=== PATIENT | male | born 1980 | race Caucasian/White ===

== ENCOUNTER 2024-01-06 09:14 | Outpatient (CLI) | payer BC, SELFPAY ==
--- NOTE | 2024-01-06 09:16 | CA_ITS ---
APPROVED REPORT EXAM: Comprehensive 2D, Doppler, and color-flow Echocardiogram Ball Shagger: Princess Jean-Baptiste RT(R) Ht: 6 ft 0 in Wt: 190lbs BSA: 2.08 BP: 160/78 mmHg Indications: cp, sob, htn, smoker 2D Dimensions Aortic Root 2.06 cm M: 3.1 - 3.7 LVEF (La's) 58.90 % M: 52 - 72 Left Atrium 2.91 cm M: 3.0 - 4.0 LV Volume 117.20 mL M: 62 - 150 LV Volume Index 56.3 mL/m2 M: 34 - 74 LA Volume 45.30 mL LA Volume Index 21.78 mL/m2 (M/F) 16-34 EF AP4 57.30 % EF AP2 55.9 % EF BP 58.9 % GL Strain -16.2 % M-Mode Dimensions RVDd 3.07 cm (0.9-2.6) LVDd 5.14 cm (3.5-5.7) Ao Diam 2.91 cm (2.0-3.7) LVDs 3.61 cm (3.5-5.7) IVSd 1.21 cm (0.6-1.1) PWd 1.00 cm (0.6-1.1) EF (Teich) 56.50% FS 29.80% EDV (Teich) 126.10 mL ESV (Teich) 54.80 mL LV Diastology E Decel Time 228 (160-240 msec) E/A Ratio 1.2 MED E' 9.2 (>= 7 cm/sec) E'/MED E' Ratio 11.77 (<= 14) LAT E' 13.0 (>= 10 cm/sec) E/LAT E' Ratio 8.33 (<= 14) Mitral Valve MV E Max Narayan. 108.0 (40-130 cm/s) MV A Velocity 87.0 (40-130 cm/s) E/A Ratio 1.25 MV Decel. Time 228 (160-240 ms) Left Ventricle The left ventricle is normal size. The left ventricular systolic function is normal. The left ventricular ejection fraction is within the normal range. There is increased overall thickness. There is normal LV segmental wall motion. The left ventricular diastolic function is normal. LVEF is 55%. Right Ventricle Right ventricle is mildly dilated. The right ventricular systolic function is normal. Atria The left atrium size is normal. The right atrium size is normal. There is no Doppler evidence of interatrial shunt. Aortic Valve The aortic valve opens well. There is no aortic valvular stenosis. No aortic regurgitation is present. Mitral Valve The mitral valve is normal in structure. No evidence of mitral valve stenosis. Trace mitral regurgitation. Tricuspid Valve The tricuspid valve leaflets are thin and pliable. Trace tricuspid regurgitation. There is insufficient TR jet to estimate RVSP. Pulmonic Valve The pulmonary valve is normal in structure. Trace pulmonic regurgitation. Great Vessels The aortic root is normal in size. The ascending aorta is not well-visualized. IVC is normal in size and collapses >50% with inspiration. Pericardium There is no pericardial effusion. Other Information Study Quality: Fair Conclusion Normal biventricular systolic function. Mild RV dilation. No significant valvular stenosis or regurgitation. Electronically signed by : Vesta Sánchez MD 01/07/2024 14:06:45
--- NOTE | 2024-01-06 09:22 | US_ITS ---
PROCEDURE INFORMATION: Exam: US Left Breast, Complete US Right Breast, Complete Exam date and time: 01/06/2024 9:28 AM Age: 43 years old Clinical indication: Left breast palpable lump. Right-sided breast abscess and right nipple discharge. TECHNIQUE: Imaging protocol: Complete ultrasound of all four quadrants of the left breast and the retroareolar regions, including ultrasound of the axilla when performed. Complete ultrasound of all four quadrants of the right breast and the retroareolar regions, including ultrasound of the axilla when performed. COMPARISON: No relevant prior studies available. FINDINGS: ULTRASOUND: Breast ultrasound findings: In the right breast retroareolar region in the area of concern, there is an irregular hypoechoic lesion measuring 3.0 x 1.6 x 1.4 cm, with hypervascularity. No There is overlying skin thickening If there are clinical signs and symptoms of infection, possible incisions/drainage and trial of antibiotics is recommended. A repeat ultrasound in 3 weeks to ensure improvement/resolution is recommended, otherwise ultrasound-guided biopsy should be performed. In the left breast retroareolar aspect at the palpable area of concern there is a 1.7 x 1.2 x 1.6 cm hypoechoic slightly irregular rounded mass, with suggestion of non parallel orientation. There is peripheral vascularity. IMPRESSION: 1. Suspected abscess in the right retroareolar breast. Evaluation by a surgeon for possible incision and drainage as well as trial of antibiotics recommended. Right breast ultrasound in 3 weeks is recommended to ensure improvement/resolution, otherwise ultrasound-guided biopsy should be performed. 2. In the left breast in the palpable area of concern, there is an indeterminate hypoechoic mass. Ultrasound-guided biopsy is recommended. 3. If the patient has not had a bilateral diagnostic mammogram, a mammogram is recommended at this time. ASSESSMENT: BI-RADS Category 4: Suspicious.
--- NOTE | 2024-01-06 10:36 | NM_ITS ---
APPROVED REPORT Exam: Nuclear Stress Test Indication: Chest pain, SOB, HTN, High cholesterol, Tobacco use, Family history Patient Location: Outpatient Stress Tech: Marcie Juan NM Tech:Tamiko Marie, ARRT, RT (R)(N) Ht: 6 ft 0 in Wt: 190 lbs HR: 59 bpm BP: 129/89 mmHg BSA: 2.08 m2 TID: 1.04 History: Chest pain, SOB, HTN, High cholesterol, Tobacco use, Family history Procedure: Patient received 0.4 mg of intravenous Lexiscan, resting heart rate 59 bpm, resting blood pressure 129/89 mmHg, with Lexiscan maximum heart rate achieved was 84 bpm which is % of the maximum predicted heart rate and blood pressure was 157/81 mmHg. With Lexiscan, patient denied any complaint of chest pain. Cardiac Stress and Resting SPECT Images: Cardiac Stress and Resting SPECT images were obtained using technetium 99m Myoview 30.7 mCi stress and 10.49 mCi at rest. Technically difficult study due to significant soft tissue diaphragmatic overlap with the cardiac borders. This may affect the diagnostic interpretation of the study findings. Resting and stress imaging in supine and prone positions demonstrate a large sized, moderate, fixed perfusion defect in the inferior LV wall and extending distally towards the inferoapical region. Gated imaging demonstrates normal global and regional LV systolic function. LVEF is located at 57%. Conclusion: Technically difficult study. Large sized, moderate, fixed perfusion defect in the inferior LV wall and extending distally towards the inferoapical region. No evidence of reversible ischemia. Gated imaging demonstrates normal global and regional LV systolic function. LVEF is located at 57%. Electronically signed by : Vesta Sánchez MD 01/07/2024 11:51:41
[2024-01-06] MEDS: REGADENOSON 0.4MG/5ML SYRINGE 0.4 MG IV (13:01)
[2024-01-06] MEDS: SODIUM CHLORIDE 0.9% 10ML SYR (RAD ONLY) 10 ML IV ×2 (13:01)
[2024-01-06] MEDS: ISOTOPE MYOVIEW (PER STUDY) 1 DOSE IV (13:01)
--- NOTE | 2024-01-06 14:02 | CA_ITS ---
APPROVED REPORT Exam: Pharmacologic Technologist: Marcie Juan Ht: 6 ft 0 in Wt: 194 lbs BSA: 2.10 m2 HR: 59 bpm BP: 129/89 mmHg Indications: Shortness of Breath, Chest pain Medical History Medications: MeLOXICAM,,,,, PaROXETINE,,,,, ClINDAMYCIN,,,,, Stress Test Details Test: LEXISCAN HR Resting HR: 59 bpm Max Heart Rate (APMHR): 176 bpm Max HR Achieved: 84 bpm Target HR (85% APMHR): 150 bpm % of APMHR: 48 Recovery HR: 62 bpm BP Resting BP: 129.0/89.0 mmHg Max BP: 157.0/81.0 mmHg Recovery BP: 457.0/81.0 mmHg ECG Resting ECG: Sinus bradycardia Stress ECG: No significant ST changes Arrhythmia: None Clinical Exercise duration: 04:00 min Highest Stage Achieved: Exercise capacity: 1.0 METs Stress ECG Conclusion Symptoms: None Arrhythmias/Ectopy: None ST-T Changes: No significant ST changes Conclusion: Unremarkable ECG portion of Lexiscan stress test. Myoview images reported separately. Test Summary REST 12:56 . . 59 . 129/ 89 . . Stage 1 . . . . . . . Myoview Injected Stage 1 01:00 . . 73 . . . . Stage 2 01:00 . . 67 . . . . Stage 3 01:00 . . 63 . 142/100 . . Stage 4 01:00 . . 72 . 144/ 84 . Stop exercise at 04:00 RECOVERY 01:00 . . 68 . 150/ 90 . . RECOVERY 02:00 . . 70 . 150/ 90 . . RECOVERY 03:00 . . 60 . 152/ 89 . . RECOVERY 03:56 . . 58 . 157/ 81 . . Electronically signed by : Vesta Sánchez MD 01/07/2024 11:49:10
== END 2024-01-06 23:59 | disposition home or self-care (01) ==
LOC: RAD 09:16
PROVIDERS: PCP Family Medicine; Visit Provider Family Medicine
DX: R07.9 Chest pain, unspecified (principal); R06.02 Shortness of breath; N61.1 Abscess of the breast and nipple; N64.52 Nipple discharge; R92.8 Other abnormal and inconclusive findings on diagnostic imaging of breast
CPT/HCPCS: 76641; 78452; 93017; 93018; 93306; A9502; J2785

== ENCOUNTER 2024-04-27 07:30 | Outpatient (CLI) | payer BC, SELFPAY ==
--- NOTE | 2024-04-27 07:31 | US_ITS ---
FINAL REPORT CLINICAL HISTORY: Breast Nodule -- LT BREAST -- DR.ALEX CARVALHO FINDINGS: ULTRASOUND-GUIDED LEFT BREAST CORE BIOPSY TECHNIQUE: Limited images were obtained to localize region of interest. Lesion was localized at approximately 3:00. The left breast was prepped in a routine sterile fashion and locally anesthetized with 1% lidocaine. Standard written informed consent was obtained. The biopsy needle was positioned within the outer periphery of the lesion. A total of 3 passes were made with a 16 gauge core biopsy needle. Complex fluid was also noted which appeared somewhat purulent. Approximately 2 mL's of purulent fluid was aspirated and submitted for cultures. Due to the possibility of abscess a biopsy marker clip was not placed. Procedure was well tolerated . CONCLUSION: 1. Technically successful ultrasound guided core biopsy of left breast lesion as above. 2. Purulent material noted and submitted for cultures and sensitivity. Lesion may represent possible abscess. Authenticated and ERN
== END 2024-04-27 23:59 | disposition home or self-care (01) ==
LOC: RAD 07:31
PROVIDERS: PCP Nurse Practitioner; Visit Provider Nurse Practitioner
DX: N63.20 Unspecified lump in the left breast, unspecified quadrant (principal)
CPT/HCPCS: 19083; 87070; 87077; 87186; 87205

== ENCOUNTER 2024-05-03 10:04 | Outpatient (POV) | payer BC, SELFPAY ==
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
[2024-05-03 10:36] VITALS: BP 107/72; PULSE 60; RESP 18; O2SAT 98; BMI 27.1
== END 2024-05-03 23:59 | disposition home or self-care (01) ==
LOC: SC.PAIN 10:09
PROVIDERS: Visit Provider Nurse Practitioner Family
DX: M54.2 Cervicalgia (principal); M54.50 Low back pain, unspecified; M25.511 Pain in right shoulder; Z87.828 Personal history of other (healed) physical injury and trauma; M54.16 Radiculopathy, lumbar region; Z73.89 Other problems related to life management difficulty; F17.210 Nicotine dependence, cigarettes, uncomplicated
CPT/HCPCS: 99202; G0463

== ENCOUNTER 2024-05-12 13:29 | Outpatient (CLI) | payer BC, SELFPAY | END 2024-05-12 23:59 | disposition home or self-care (01) | LOC: RAD 13:30 | PROVIDERS: PCP Nurse Practitioner; Visit Provider Nurse Practitioner | DX: Z12.31 Encounter for screening mammogram for malignant neoplasm of breast (principal) ==

== ENCOUNTER 2024-06-11 10:07 | Outpatient (POV) | payer OTHER, SELFPAY ==
[2024-06-11 10:40] VITALS: BP 140/86; PULSE 72; RESP 14; O2SAT 99; BMI 27.1
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
== END 2024-06-11 23:59 | disposition home or self-care (01) ==
PROVIDERS: PCP Nurse Practitioner; Visit Provider Nurse Practitioner Family
DX: M54.16 Radiculopathy, lumbar region (principal); M54.50 Low back pain, unspecified; M54.2 Cervicalgia; F17.210 Nicotine dependence, cigarettes, uncomplicated
CPT/HCPCS: 99212; G0463

== ENCOUNTER 2024-07-08 11:12 | Outpatient (CLI) | payer OTHER, SELFPAY ==
[2024-07-08 19:06] LABS: Basophils # 0.1 K/mm3 (0-0.2); Basophils % 0.7 % (0.1-2.0); Eosinophils # 0.2 K/mm3 (0.0-0.4); Eosinophils % 2.2 % (0.1-12.0); Hematocrit 51.3 % (42.0-52.0); Hemoglobin 17.9 g/dL (14.1-18.0); Lymphocytes # 2.7 K/mm3 (0.7-4.5); Lymphocytes % 28.5 % (10-50); Mean Corpuscular HGB Conc 34.9 g/dL (31.8-35.4); Mean Corpuscular Hemoglobin 35.8 pg (27.0-31.2); Mean Corpuscular Volume 102.6 fl (80-94); Mean Platelet Volume 9.3 fl (7.4-10.4); Monocytes # 0.7 K/mm3 (0.1-1.0); Monocytes % 7.8 % (1.7-9.3); Neutrophils # 5.7 K/mm3 (1.8-7.8); Neutrophils % 60.2 % (37.0-80.0); Platelet Count 262 K/mm3 (142-424); Red Cell Distribution Width 12.7 % (11.5-17.5); White Blood Count 9.5 K/mm3 (4.8-10.8)
[2024-07-08 19:32] LABS: Alanine Aminotransferase 37 U/L (12-78); Albumin/Globulin Ratio 1.9 (1.1-1.8); Alkaline Phosphatase 63 U/L (38-126); Anion Gap 13.7 mEq/L (5-15); Aspartate Amino Transferase 40 U/L (17-59); Bilirubin,Total 0.6 mg/dl (0.2-1.3); Blood Urea Nitrogen 13 mg/dl (9-20); Calcium 9.4 mg/dl (8.4-10.2); Carbon Dioxide 20 mmol/L (22.0-30.0); Chloride 109 mmol/L (98-107); Chol/HDL Ratio 4.7 (1-3.5); Cholesterol 156 mg/dl (140-200); Estimated Glomerular Filt Rate 180 ml/min (>60); GFR (African American) 218 ML/MIN (>60); Globulin 2.7 g/dL (1.3-3.2); Glucose 97 mg/dl (74-100); HDL Cholesterol 33 mg/dl (40-60); Potassium 4.7 mmoL/L (3.5-5.1); Sodium 138 mmol/L (136-145); Total Protein,Serum 7.7 g/dl (6.3-8.2); Triglycerides 257 mg/dl (30-150); VLDL Cholesterol 51 mg/dL (0-40)
[2024-07-08 19:43] LABS: Direct LDL Cholesterol 70.44 mg/dL (100-129)
[2024-07-08 19:48] LABS: 25-OH Vitamin D, Total 19.5 ng/mL (30-100)
[2024-07-08 19:49] LABS: T4 (Thyroxine) 8.5 ug/dl (5.53-11.0)
[2024-07-08 20:03] LABS: Thyroid Stimulating Hormone 3.96 uIU/mL (0.465-4.68)
== END 2024-07-08 23:59 | disposition home or self-care (01) ==
LOC: LAB.DROPOF 07-09 12:34
PROVIDERS: PCP Nurse Practitioner Family; Visit Provider Nurse Practitioner Family
DX: R53.83 Other fatigue (principal)
CPT/HCPCS: 80053; 80061; 82306; 84436; 84443; 85025; 87070; 87077; 87186; 87205

== ENCOUNTER 2024-07-26 08:57 | Outpatient (CLI) | payer OTHER, SELFPAY ==
--- NOTE | 2024-07-26 09:05 | US_ITS ---
PROCEDURE INFORMATION: Exam: US Right Breast, Complete Exam date and time: 07/26/2024 9:11 AM Age: 44 years old Clinical indication: Breast pain; Right; Additional info: Abscess TECHNIQUE: Imaging protocol: Complete ultrasound of all four quadrants of the right breast and the retroareolar regions, including ultrasound of the axilla when performed. COMPARISON: US BREAST COMPLETE 01/06/2024 9:22 AM FINDINGS: ULTRASOUND: Breast ultrasound findings: Sonographic images of the right immediate retroareolar region demonstrates an irregularly marginated hypoechoic mass measuring 2.3 x 1.3 x 2.6 cm in dimension. There is overlying skin thickening. The finding likely represents an abscess. No axillary adenopathy. Sonographic images of the left retroareolar region demonstrate an fairly well-circumscribed heterogeneous hypoechoic more solid-appearing mass measuring 1.3 x 1.0 x 1.7 cm in dimension. This is the site of prior biopsy showing inflammatory change. No axillary adenopathy. IMPRESSION: Bilateral breast masses. The left-sided mass underwent prior biopsy with pathology showing inflammatory change. The right-sided mass appears relatively unchanged compared to prior sonogram dated 01/06/2024. It is unclear if this reflects a recurrent abscess. Surgical consultation for potential biopsy and potential incision and drainage on the right . ASSESSMENT: BI-RADS Category 4: Suspicious.
== END 2024-07-26 23:59 | disposition home or self-care (01) ==
LOC: RAD 08:57
PROVIDERS: PCP Nurse Practitioner Family; Visit Provider Surgery
DX: N61.1 Abscess of the breast and nipple (principal)
CPT/HCPCS: 76641

== ENCOUNTER 2024-12-13 10:18 | Emergency (ER) | payer OTHER, SELFPAY ==
[2024-12-13 10:51] VITALS: BP 151/92; PULSE 64; O2SAT 99
[2024-12-13 10:58] VITALS: BP 151/92; PULSE 67; RESP 18; TEMP 36.8; O2SAT 98; BMI 27.1
[2024-12-13 11:00] VITALS: BP 147/78; PULSE 63; O2SAT 98
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
--- OUTSIDE RECORDS SUMMARY | 2024-12-13 11:11 | XMS_ITS | Encounter Summary ---
Author Organization [facility] Address [address] [place] [address] Care Team Providers Care Learning Program Manager Name Role Phone Unavailable Primary Care Provider Unavailabl e Reason for Referral * Consultation (Routine) - Authorized Specialty Diagnoses / Procedures Referred By Contac t Referred To Contact Hematology and Oncology Diagnoses Abnormal ultrasound of breast Nipple discharge Gerald Jimenez MD [address] [place] [address] Phone: tel: fax: [facility] [address] [place] [address] Phone: tel: fax: Referral ID Status Reason Start Date Expiration Date Visits Requested Visits Authorized [id number] Authorized Specialty Services Required 02/11/2024 08/12/2025 1 1 * Consultation (Routine) - Authorized Specialty Diagnoses / Procedures Referred By Contac t Referred To Contact General, Endocrine & Minimally Invasive Surgery / General Surgery Diagnoses Abnormal ultrasound of breast Nipple discharge Gerald Jimenez MD [address] [place] [address] Phone: tel: fax: Referral ID Status Reason Start Date Expiration Date Visits Requested Visits Authorized [id number] Authorized Specialty Services Required 02/10/2024 08/11/2025 1 1 Encounter Details Date Type Department Care Team (Late st Contact Info) Description 02/10/2024 Community [facility] [address] [place] [address] Gerald Jimenez MD [address] [place] [address] Abnormal ultrasound of breast (Primary Dx); Nipple discharge Social History Tobacco Use Types Packs/Day Years Used Date Smoking Tobacco: Never Assessed Sex and Gender Information Value Date Recorded Sex Assigned at Not on file Legal Sex Male 5:18 PM EDT Gender Identity Not on file Sexual Orientation Not on file documented as of this encounter Plan of Treatment Scheduled Referrals Name Type Priority Associated Diagnoses Order Schedule Ambulatory Referral to General Surgery ([facility]) Outpatient Referral Routine Abnormal ultrasound of breast Nipple discharge 1 Occurrences starting 02/10/2024 until 08/09/2025 Ambulatory Referral to [facility] Outpatient Referral Routine Abnormal ultrasound of breast Nipple discharge Expected: 02/11/2024 (Approximate), Expires: 08/10/2025 documented as of this encounter Visit Diagnoses Diagnosis Abnormal ultrasound of breast- Primary Nipple discharge Other sign and symptom in breast documented in this encounter
--- OUTSIDE RECORDS SUMMARY | 2024-12-13 11:11 | XMS_ITS | Clinical Summary ---
Author Organization Healthcare Address [address] [place] [address] Care Team Providers Care Spiritual Care Coordinator Name Role Phone Unavailable Primary Care Provider Unavailabl e Social History Tobacco Use Types Packs/Day Years Used Date Smoking Tobacco: Never Assessed Sex and Gender Information Value Date Recorded Sex Assigned at Not on file Legal Sex Male 5:18 PM EDT Gender Identity Not on file Sexual Orientation Not on file Plan of Treatment Health Maintenance Due Date Last Done Comments [facility]-Depression Screening 1979 [facility]-HIV Screening 1979 [facility]-Hepatitis C Screening 1979 [facility]-Infant/Child/Adol SDOH Screenings 1979 HPV Vaccines (1 - Male 3-dos e series) 1994 [facility]- SDOH Screenings 1997 [facility]-Adult SDOH Screenings 1997 [facility]-DTaP,Tdap,and Td Vaccine s (1 - Tdap) 1998 [facility]-Hepatitis B Vaccines (1 of 3 - 19+ 3-dose series) 1998 [id number] Vaccine (1 - 20 24-25 season) 2024 CT Colonography 2024 Colonoscopy 2024 FIT-DNA 2024 FIT 2024 FOBT 2024 Sigmoidoscopy 2024 [facility]-Colorectal Cancer Screening 2024 [facility]-Influenza Vaccine (#1) 2025 [facility]-Zoster Vaccines (1 of 2) 2029 [facility]-HIB Vaccines Aged Out No longer e ligible based on patient's age to complete this topic [facility]-Hepatitis A Vaccines Aged Out No longer eligible based on patient's age to complete this topic [facility]-IPV Vaccines Aged Out No longer e ligible based on patient's age to complete this topic [facility]-Pneumococcal Vaccine: Pediatrics (0 to 5 Years) and At-Risk Patients (6 to 49 Years) Aged Out No long er eligible based on patient's age to complete this topic [facility]-Rotavirus Vaccines Aged Out No lo nger eligible based on patient's age to complete this topic
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
--- NOTE | 2024-12-13 11:16 | CT_ITS ---
PROCEDURE INFORMATION: Exam: CT Chest With Contrast; Diagnostic Exam date and time: 12/13/2024 12:10 PM Age: 44 years old Clinical indication: Other: Concern for right breast abscess TECHNIQUE: Imaging protocol: Diagnostic computed tomography of the chest with contrast. Radiation optimization: All CT scans at this facility use at least one of these dose optimization techniques: automated exposure control; mA and/or kV adjustment per patient size (includes targeted exams where dose is matched to clinical indication); or iterative reconstruction. Contrast material: ISOVUE; Contrast volume: 75 ml; Contrast route: IV; COMPARISON: No relevant prior studies available. FINDINGS: Lungs: Unremarkable. No consolidation. No masses. Pleural spaces: Unremarkable. No pneumothorax. No pleural effusion. Heart: Unremarkable. No cardiomegaly. No pericardial effusion. Lymph nodes: Calcified mediastinal nodes may reflect prior granulomatous disease Vasculature: Unremarkable. No aortic aneurysm. Bones/joints: Unremarkable. No acute fracture. Soft tissues: 18 x 14 mm fluid collection in the left breast series 5, image 49.. Complex low-attenuation and septations in the tissue of the right breast. This could also represent infection IMPRESSION: 18 x 14 mm fluid collection in the left breast series 5, image 49.. This may represent abscess Complex low-attenuation and septations in the tissue of the right breast. This could also represent infection
[2024-12-13 11:30] VITALS: BP 147/88; PULSE 67; RESP 18; O2SAT 98
[2024-12-13] MEDS: KETOROLAC 30MG/ML VIAL 15 MG IV (11:45)
[2024-12-13 11:50] LABS: Hematocrit 45.2 % (42.0-52.0); Hemoglobin 15.8 g/dL (14.1-18.0); Immature Granulocytes % 0.7 %; Mean Corpuscular HGB Conc 35.0 g/dL (31.8-35.4); Mean Corpuscular Hemoglobin 34.6 pg (27.0-31.2); Mean Corpuscular Volume 98.9 fl (80-94); Nucleated Red Blood Cells % 0 %; Platelet Count 224 K/mm3 (142-424); Red Blood Count 4.57 M/mm3 (4.60-6.20); Red Cell Distribution Width-SD 53.0 fL; White Blood Count 8.9 K/mm3 (4.8-10.8)
[2024-12-13 12:00] LABS: Alanine Aminotransferase 27 U/L (12-78); Albumin Level 4.3 g/dl (3.5-5.0); Albumin/Globulin Ratio 1.6 (1.1-1.8); Alkaline Phosphatase 67 U/L (38-126); Anion Gap 14.2 mEq/L (5-15); Aspartate Amino Transferase 27 U/L (17-59); Bilirubin,Total 0.6 mg/dl (0.2-1.3); Blood Urea Nitrogen 10 mg/dl (9-20); Calcium 9.0 mg/dl (8.4-10.2); Carbon Dioxide 25 mmol/L (22.0-30.0); Chloride 105 mmol/L (98-107); Creatinine Clearance Estimated 171 mL/min (50-200); Creatinine,Serum 0.70 mg/dl (0.66-1.25); Estimated Glomerular Filt Rate 122 ml/min (>60); GFR (African American) 148 ML/MIN (>60); Globulin 2.7 g/dL (1.3-3.2); Glucose 103 mg/dl (74-100); Potassium 4.2 mmoL/L (3.5-5.1); Sodium 140 mmol/L (136-145); Total Protein,Serum 7.0 g/dl (6.3-8.2)
[2024-12-13] MEDS: SODIUM CHLORIDE 0.9% 10ML SYR (RAD ONLY) 10 ML IV (12:16)
[2024-12-13] MEDS: IOPAMIDOL-370 (76%);100ML BOTTLE 75 ML IV (12:16)
--- NOTE | 2024-12-13 12:48 | PC.NURSE ---
call made to rad to check on status of pts scan. radial drill operator for plastic states scan is assigned
[2024-12-13 13:44] LABS: Hepatitis C Ab Qual. W/ RFX NEGATIVE (Negative)
[2024-12-13] MEDS: MORPHINE 4MG/ML SYRINGE 4 MG IV (13:46)
[2024-12-13 13:53] VITALS: BP 147/88; PULSE 62; RESP 18; TEMP 36.8; O2SAT 98
== END 2024-12-13 13:55 | disposition home or self-care (01) ==
PROVIDERS: Physician Assistant; Emergency Provider Student in an Organized Health Care Education/Training Program; PCP Nurse Practitioner Family
DX: N64.52 Nipple discharge (principal); F17.210 Nicotine dependence, cigarettes, uncomplicated
CPT/HCPCS: 71260; 80053; 85025; 86803; 87389; 96374; 96375; 99284; J1885; J2270; Q9967

== ENCOUNTER 2024-12-23 13:55 | Outpatient (CLI) | payer OTHER, SELFPAY ==
[2024-12-23 13:43] VITALS: BMI 27.1
--- OUTSIDE RECORDS SUMMARY | 2024-12-23 13:57 | XMS_ITS | Clinical Summary ---
Author Organization [facility] Address [address] [place] [address] Phone Care Team Providers Care Finance Controller Name Role Phone Nonstaff, Referring Primary Care [...] Hospital Encounter GRT XRAY [address] [place] [address] Ureteral calculus Discharge Disposition: Home or Self Care 09/29/2024 10:41 AM EDT - 09/29/2024 1:35 PM EDT [facility] [address] [place] [address] Jj De La Paz MD Left ureteral stone (Primary Dx) Discharge Disposition: Home or Self Care 09/29/2024 Travel 09/26/2024 4:30 PM EDT - 09/26/2024 4:55 PM EDT [facility] [address] [place] [address] Rogelio Winn MD Gastroenteritis (Primary [...] 10/01/2024 8:43 AM CLINICAL HISTORY: N20.1-Calculus of [id number]-CM COMPARISON: CT September 29, 2024 PROCEDURE COMMENTS: [...] 10/01/2024 8:43 AM CLINICAL HISTORY: N20.1-Calculus of [id number]-RZA-44-CM COMPARISON: CT September 29, 2024 PROCEDURE COMMENTS: [...] UA Color Yellow 09/29/2024 11:36 AM EDT [facility] UA Appear Clear Clear 09/[facility]A Glucose Negative Negative mg/dL 09/29/2024 11:36 AM [facility] UA Ketones Negative Negative mg/dL 09/29/2024 11:[facility] UA Blood Large(A) Negative 09/29/2024 11:[facility] UA pH 6.0 5.0 - 8.0 pH 09/29/2024 11:36 AM [facility] UA Protein 100(A) Negative mg/dL 09/29/2024 11:36 AM [facility] UA Urobilinogen 0.2 <=1 mg/dL 11:36 AM [facility] UA Bili Negative Negative 09/29/2024 11:36 AM EDT [facility] UA Nitrite Negative Negative 09/29/2024 11:36 AM [facility] UA Leuk Est Small(A) Negative 09/29/2024 11:36 AM [facility] UA Spec Grav 1.020 1.001 - 1.035 no units 09/29/2024 11:36 AM [facility] Comment:Reference range teddy d for random specimens only. UA WBC 5(H) 0 - 4 /HPF 09/29/2024 11:36 AM EDT [facility] UA RBC 30(H) 0 - 3 /HPF 09/29/2024 11:36 AM EDT [facility] Urine STRUCTURE OF URINARY TRACT PROPER / Unknown 09/29/2024 11:25 AM EDT 09/29/2024 11:27 AM EDT us Jj De La Paz MD URINE ORDERABLES Final Result Performing Organization Address [facility] de Phone Number [facility] [address] [place] [address] * EXTRA AHMADI URINE CX (09/29/2024 11:25 AM EDT) Urine STRUCTURE OF URINARY TRACT PROPER / Unknown 09/29/2024 11:25 AM EDT 09/29/2024 11:27 AM EDT us Jj De La Paz MD MICROBIOLOGY - GENERAL ORDERABL ES Final Result Performing Organization Address [facility] de Phone Number [facility] [address] [place] [address] * URINE CULTURE (NO STAIN) (09/29/2024 11:25 AM EDT) Culture No growth at 30 hours. 09/30/2024 10:00 PM EDT Glass Urine STRUCTURE OF URINARY TRACT PROPER / Unknown 09/29/2024 11:25 AM EDT 09/29/2024 11:36 AM EDT us Jj De La Paz MD MICROBIOLOGY - GENERAL ORDERABL ES Final Result Performing Organization Address City/[facility] Co de Phone Number Glass [address] [place] [address] , [address] [place] [id number] * LIPASE LEVEL (09/29/2024 11:25 AM EDT) Lipase Lvl 40 13 - 60 U/L 09/29/2024 11:46 AM EDT [facility] Blood VENOUS BLOOD / Unknown Venipuncture / Unknown 09/29/2024 11:25 AM EDT 09/29/2024 11:27 AM EDT us Jj De La Paz MD CHEMISTRY ORDERABLES Final Resu lt [facility] [address] [place] [address] * (ABNORMAL) COMPREHENSIVE METABOLIC PANEL (09/29/2024 11:25 AM EDT) Sodium 140 136 - 145 mmol/L 09/29/2024 11:46 AM T [facility] Potassium 3.4(L) 3.5 - 5.0 mmol/L 09/29/2024 11:46 AM T [facility] Chloride 102 98 - 107 mmol/L 09/29/2024 11:46 AM [facility] Total CO2 27 22 - 29 mmol/L 09/29/2024 11:46 AM [facility] Anion Gap 11 7 - 16 mmol/L 09/29/2024 11:46 AM [facility] Calcium 8.8 8.6 - 10.4 mg/dL 09/29/2024 11:46 AM [facility] Glucose Lvl 104(H) 70 - 99 mg/dL 09/29/2024 11:46 AM T [facility] BUN 8 6 - 20 mg/dL 09/29/2024 11:46 AM [facility] Creatinine 0.70 0.67 - 1.30 mg/dL 09/29/2024 11:46 AM [facility] Albumin 4.1 3.5 - 5.2 gm/dL 09/29/2024 11:46 AM [facility] Total Protein 6.6 6.4 - 8.3 gm/dL 09/29/2024 11:46 AM [facility] Bili Total 0.6 0.2 - 1.4 mg/dL 09/29/2024 11:46 AM [facility] ALT 33 <=41 U/L 09/29/2024 11:46 AM [facility] AST 21 <=40 U/L 09/29/2024 11:46 AM [facility] Alk Phos 72 40 - 129 U/L 09/29/2024 11:46 AM EDT [facility] eGFR (CKD-EPIcr 2020) 116 >=60 mL/min/1.7 3 m2 09/29/2024 11:46 AM EDT [facility] Comment:Estimated GFR was ca lculated using the CKD-EPIcr (2020) equation refit without race. The equation is recommended by the National Kid[employer] Foundation - [place] [employer] Nephrology Task Force. Blood VENOUS BLOOD / Unknown Venipuncture / Unknown 09/29/2024 11:25 AM EDT 09/29/2024 11:27 AM EDT us Jj De La Paz MD CHEMISTRY ORDERABLES Final Resu lt [facility] [address] [place] [address] * (ABNORMAL) CBC (09/29/2024 10:56 AM EDT) WBC 9.3 3.7 - 10.3 x10(3)/mcL 09/29/2024 11:04 AM EDT [facility] RBC 4.82 4.60 - 6.10 x10(6)/mcL 09/29/2024 11:04 AM EDT [facility] Hgb 16.3 13.7 - 17.5 g/dL 09/29/2024 11:04 AM EDT [facility] Hct 49.1 40.0 - 51.0 % 09/29/2024 11:04 AM EDT [facility] MCV 101.9(H) 80.0 - 100.0 fL 09/29/2024 11:04 AM EDT [facility] MCH 33.8 26.0 - 34.0 pg 09/29/2024 11:04 AM EDT [facility] MCHC 33.2 30.7 - 35.5 g/dL 09/29/2024 11:04 AM EDT [facility] RDW 12.8 <=14.9 % 09/29/2024 11:04 AM EDT [facility] Platelet 231 155 - 369 x10(3)/mcL 09/29/2024 11:04 AM EDT [facility] MPV 8.9 8.8 - 12.5 fL 09/29/2024 11:04 AM EDT [facility] Blood VENOUS BLOOD / Unknown Venipuncture / Unknown 09/29/2024 10:56 AM EDT 09/29/2024 11:01 AM EDT us Jj De La Paz MD HEMATOLOGY ORDERABLES Final Res ult [facility] [address] [place] [address] from Last 3 Months Insurance [facility] [employer] [place] Care Teams Finance Controller Relationship Specialty Start Date End Date Nonstaff, Referring PCP - General 09/26/24
--- OUTSIDE RECORDS SUMMARY | 2024-12-23 13:57 | XMS_ITS | Encounter Summary ---
Author Organization [facility] Address [address] [place] [address] Care Team Providers Care Nitrate Operator Name Role Phone Unavailable Primary Care Provider Unavailabl e Reason for Referral * Consultation (Routine) - Authorized Specialty Diagnoses / Procedures Referred By Contac t Referred To Contact Hematology and Oncology Diagnoses Abnormal ultrasound of breast Nipple discharge Gerald Jimenez MD [address] [place] [address] Phone: tel: fax: [facility] [address] [facility] [place] [address] Phone: tel: fax: Referral ID Status Reason Start Date Expiration Date Visits Requested Visits Authorized [id number] Authorized Specialty Services Required 02/11/2024 08/12/2025 1 1 * Consultation (Routine) - Authorized Specialty Diagnoses / Procedures Referred By Contac t Referred To Contact General, Endocrine & Minimally Invasive Surgery / General Surgery Diagnoses Abnormal ultrasound of breast Nipple discharge Gerald Jimenez MD [address] [place] [address] Phone: tel: fax: Referral ID Status Reason Start Date Expiration Date Visits Requested Visits Authorized [id number] Authorized Specialty Services Required 02/10/2024 08/11/2025 1 1 Encounter Details Date Type Department Care Team (Late st Contact Info) Description 02/10/2024 Community [facility] [address] [place] [address] Gerald Jimenez MD [address] [place] [address] Abnormal ultrasound of breast (Primary Dx); Nipple [...]
--- OUTSIDE RECORDS SUMMARY | 2024-12-23 13:57 | XMS_ITS | Clinical Summary ---
Author Organization Healthcare Address [address] [place] [address] Care Team Providers Care Product Marketing Executive Name Role Phone Unavailable Primary Care Provider [...] of 3 - 19+ 3-dose series) 1998 [id number] Vaccine (1 - 20 24-25 season) 2024 [...]
== END 2024-12-23 23:59 | disposition home or self-care (01) ==
LOC: PREOP 13:55
PROVIDERS: PCP Family Medicine; Visit Provider Surgery
DX: R69 Illness, unspecified (principal)

== ENCOUNTER 2024-12-24 09:53 | Day surgery (SDC) | payer OTHER, SELFPAY ==
[2024-12-23 14:16] VITALS: BMI 27.1
[2024-12-24] VITALS (10 sets, daily range): BP systolic 111–168; BP diastolic 51–96; PULSE 56–66; RESP 16–20; TEMP 36.1–36.6; O2SAT 94–98
[2024-12-24] MEDS: LACTATED RINGERS 1000ML 1,000 ML 50 ML IV (10:27)
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
[2024-12-24] MEDS: LIDOCAINE 1% 20ML MDV 20 ML (11:04)
[2024-12-24] MEDS: CLINDAMYCIN PHOSPHATE/D5W 900 MG/50 ML PIGGYBACK 50 MG (11:06)
--- NOTE | 2024-12-24 11:16 | P.OP_ITS ---
Date of procedure: 12/24/24 Pre-op Diagnosis:: Bilateral breast abscesses Post-op Diagnosis:: Same Procedure performed:: Incision and drainage of right breast abscess Needle aspiration left breast abscess Surgeon:: Hardy Samaniego MD EXPRESSIVE MUSIC THERAPIST:: Jason Pederson Anesthesia: LMA Estimated blood loss (mL): 3 Clinical Note:: Patient is a 44-year-old male. I had seen him about 6 months ago in July of this year at which time he was referred for discharge and possible abscess from the right nipple. At that time he had been having symptoms for about 6 months. He had initially been seen by primary care Angier on 12/29/2019 for and was started on antibiotics. He ultimately did undergo a breast ultrasound on 01/06/2024 which revealed retroareolar abscess. On the left side there was hypoechoic mass on ultrasound. On 04/27/2024 he underwent ultrasound-guided biopsy of the left side which noted purulent material and biopsy pathology revealed inflammatory changes. After I saw him in the office in July 2024 plan was made for ultrasound initially. This was done on 07/27/2024. Patient apparently had reportedly spent some time in assisted following that and was unable to keep her follow-up appointment. He had been seen in the emergency department about 10 days ago complaining of bilateral nipple pain. He was started on clindamycin. CT scan revealed 18 x 14 mm fluid collection in the left breast area with some low attenuation complex septations on the right. Patient describes purulent drainage from the right including drainage from the nipple. He was seen as a surgical consultation in the office yesterday on 12/23/2024. There was some fluctuance in the right breast area near the medial circumareolar location. On the left breast there was some faint redness and fullness in the retroareolar location but no clear fluctuance. At that time plan was made for incision and drainage of the fluctuance from the right and possible ultrasound- guided aspiration of the left. Patient was anxious to proceed. Once he was in the operating room there appeared to be some significant palpable retroareolar fullness on the left and consent was obtained for aspiration for presumed palpable abscess. Operative findings:: On the right side there was relatively superficial granulating abscess cavity medial right areolar area containing somewhat thin blood tinged pus. The left side aspiration revealed thick yellow pus. These were sent for separate cultures. Operative note:: Consent was obtained patient taken the operating room. He was placed in a supine position. General anesthesia was induced via LMA. Inspection of the left breast revealed the area to be consistent with a probable palpable retroareolar abscess. Therefore additional consent was obtained for possible aspiration of this without ultrasound guidance. Both areas were prepped and draped in the standard surgical fashion. In the right breast in the medial periareolar location at the site of fluctuance incision was made. There was some blood-tinged relatively thin pus. This was sent for culture. There was a rather superficial somewhat chronic appearing granulating abscess cavity. The incision was extended somewhat after probing. Cavity was curetted with a small curette removing the inflamed granulation tissue. This was sent as pathology tissue specimen. Local anesthetic was infiltrated after irrigation was performed. Hemostasis was achieved with electrocautery. The wound was packed with 1/4 inch plain packing gauze. Covered with clean dry sterile dressing. Attention was then turned to the left side. In the lateral periareolar location at the site of some erythema and edema overlying the palpable presumed abscess 18-gauge needle was inserted. Approximately 5 cc of thick yellowish pus was aspirated. This was sent for culture. Band-Aid was applied. Condition: stable Disposition: PACU Complications:: None immediately apparent
--- NOTE | 2024-12-24 11:18 | P.PNANES_ITS ---
[facility] Anesthesia Record Part I Anesthesia Record I Intake, IV Amount: 1,000 Hydration: Adequate Estimated blood loss (mL): 0 Urine output (mL): 0 Blood Pressure: 140/78 SaO2: 94 Pulse Rate: 59 Airway Patency: Patent Respiratory Rate: 16 Temperature: 97.8 F Patient is:: Drowsy and Stable Stable to PACU at:: 11:15
--- NOTE | 2024-12-24 12:15 | P.PNANES_ITS ---
[facility] Anesthesia Record Part II Anesthesia Record Part II Discharge Time: 11:46 Destination: Surgical Day Care (OP Surgery) PACU nurse assessment reviewed?: Yes Patient Condition:: Good Anesthesia Complications:: None Swallowing reflex intact?: Yes Airway Patency: Patent Cyanosis?: No Blood Pressure: 145/96 SaO2: 96 Respiratory Rate: 16 Pulse Rate: 57 Temperature: 97.5 F Mental Status: Alert & Oriented Pain level:: 1 Nausea and/or vomitting:: None Intake, IV Amount: 0 Hydration: Adequate
== END 2024-12-24 12:17 | disposition home or self-care (01) ==
PROVIDERS: PCP Family Medicine; Visit Provider Surgery
PROC: (CPT 10160; principal; 2024-12-24 12:00)
DX: N61.1 Abscess of the breast and nipple (principal); F17.210 Nicotine dependence, cigarettes, uncomplicated; Z86.711 Personal history of pulmonary embolism; Z86.718 Personal history of other venous thrombosis and embolism; Z88.0 Allergy status to penicillin; Z79.899 Other long term (current) drug therapy
CPT/HCPCS: 10160; 19020; 87070; 87205; 96374; J0736; J1100; J2003; J2250; J2405; J2704; J2795; J3010; J7120

== ENCOUNTER 2024-12-25 10:44 | Outpatient (CLI) | payer OTHER, SELFPAY ==
--- OUTSIDE RECORDS SUMMARY | 2024-12-25 10:46 | XMS_ITS | Clinical Summary ---
Author Organization Healthcare Address [address] [place] [address] Care Team Providers Care Floorworker Lasting Name Role Phone Unavailable Primary Care Provider [...] of 3 - 19+ 3-dose series) 1998 [id number] Vaccine (1 - 20 24-25 season) 2024 [...]
--- OUTSIDE RECORDS SUMMARY | 2024-12-25 10:46 | XMS_ITS | Clinical Summary ---
Author Organization [facility] Address [address] [place] [address] Phone Care Team Providers Care Gauge Machine Operator Name Role Phone Nonstaff, Referring Primary Care [...] Hospital Encounter GRT XRAY [address] [place] [address] Ureteral calculus Discharge Disposition: Home or Self Care 09/29/2024 10:41 AM EDT - 09/29/2024 1:35 PM EDT Emergency [facility] [address] [place] [address] Jj De La Paz MD Left ureteral stone (Primary Dx) Discharge Disposition: Home or Self Care 09/29/2024 Travel 09/26/2024 4:30 PM EDT - 09/26/2024 4:55 PM EDT Emergency [facility] [address] [place] [address] Rogelio Winn MD Gastroenteritis (Primary [...] 10/01/2024 8:43 AM CLINICAL HISTORY: N20.1-Calculus of byufnx-RTU-50-CM COMPARISON: CT September 29, 2024 PROCEDURE COMMENTS: [...] 10/01/2024 8:43 AM CLINICAL HISTORY: N20.1-Calculus of sziejc-ZNO-61-CM COMPARISON: CT September 29, 2024 PROCEDURE COMMENTS: [...] UA Color Yellow 09/29/2024 11:36 AM EDT [facility] UA Appear Clear Clear 09/29/2024 11:[facility]A Glucose Negative Negative mg/dL 09/29/2024 11:36 AM [facility] UA Ketones Negative Negative mg/dL 09/29/2024 11:36 AM [facility] UA Blood Large(A) Negative 09/29/2024 11:36 AM [facility] UA pH 6.0 5.0 - 8.0 pH 09/29/2024 11:36 AM [facility] UA Protein 100(A) Negative mg/dL 09/29/2024 11:36 AM [facility] UA Urobilinogen 0.2 <=1 mg/dL 11:36 AM [facility] UA Bili Negative Negative 09/29/2024 11:36 AM EDT [facility] UA Nitrite Negative Negative 09/29/2024 11:36 AM [facility] UA Leuk Est Small(A) Negative 09/29/2024 11:36 AM [facility] UA Spec Grav 1.020 1.001 - 1.035 no units 09/29/2024 11:36 AM [facility] Comment:Reference range teddy d for random specimens only. UA WBC 5(H) 0 - 4 /HPF 09/29/2024 11:36 AM EDT [facility] UA RBC 30(H) 0 - 3 /HPF 09/29/2024 11:36 AM EDT [facility] Urine STRUCTURE OF URINARY TRACT PROPER / Unknown 09/29/2024 11:25 AM EDT 09/29/2024 11:27 AM EDT us Jj De La Paz MD URINE ORDERABLES Final Result Performing Organization Address [facility] de Phone Number [facility] [address] [place] [address] * EXTRA AHMADI URINE CX (09/29/2024 11:25 AM EDT) Urine STRUCTURE OF URINARY TRACT PROPER / Unknown 09/29/2024 11:25 AM EDT 09/29/2024 11:27 AM EDT us Jj De La Paz MD MICROBIOLOGY - GENERAL ORDERABL ES Final Result Performing Organization Address [facility] de Phone Number [facility] [address] [place] [address] * URINE CULTURE (NO STAIN) (09/29/2024 11:25 AM EDT) Culture No growth at 30 hours. 09/30/2024 10:00 PM EDT [facility] Urine STRUCTURE OF URINARY TRACT PROPER / Unknown 09/29/2024 11:25 AM EDT 09/29/2024 11:36 AM EDT us Jj De La Paz MD MICROBIOLOGY - GENERAL ORDERABL ES Final Result Performing Organization Address City/[facility] Co de Phone Number [facility] [address] [place] [address] , [address] [place] [id number] * LIPASE LEVEL (09/29/2024 11:25 AM EDT) Lipase Lvl 40 13 - 60 U/L 09/29/2024 11:46 AM EDT [facility] Blood VENOUS BLOOD / Unknown Venipuncture / Unknown 09/29/2024 11:25 AM EDT 09/29/2024 11:27 AM EDT us Jj De La Paz MD CHEMISTRY ORDERABLES Final Resu lt [facility] [address] [place] [address] * (ABNORMAL) COMPREHENSIVE METABOLIC PANEL (09/29/2024 11:25 AM EDT) Sodium 140 136 - 145 mmol/L 09/29/2024 11:46 AM T [facility] Potassium 3.4(L) 3.5 - 5.0 mmol/L 09/29/2024 11:46 AM T [facility] Chloride 102 98 - 107 mmol/L 09/29/2024 11:46 AM [facility] Total CO2 27 22 - 29 mmol/L 09/29/2024 11:46 AM [facility] Anion Gap 11 7 - 16 mmol/L 09/29/2024 11:46 AM [facility] Calcium 8.8 8.6 - 10.4 mg/dL 09/29/2024 11:46 AM [facility] Glucose Lvl 104(H) 70 - 99 mg/dL 09/29/2024 11:46 AM T [facility] BUN 8 6 - 20 mg/dL 09/29/2024 11:46 AM [facility] Creatinine 0.70 0.67 - 1.30 mg/dL 09/29/2024 11:46 AM [facility] Albumin 4.1 3.5 - 5.2 gm/dL 09/29/2024 11:46 AM [facility] Total Protein 6.6 6.4 - 8.3 gm/dL 09/29/2024 11:46 AM [facility] Bili Total 0.6 0.2 - 1.4 mg/dL 09/29/2024 11:46 AM [facility] ALT 33 <=41 U/L 09/29/2024 11:46 AM [facility] AST 21 <=40 U/L 09/29/2024 11:46 AM [facility] Alk Phos 72 40 - 129 U/L 09/29/2024 11:46 AM EDT [facility] eGFR (CKD-EPIcr 2020) 116 >=60 mL/min/1.7 3 m2 09/29/2024 11:46 AM EDT [facility] Comment:Estimated GFR was ca lculated using the CKD-EPIcr (2020) equation refit without race. The equation is recommended by the National Kidney Foundation - [place] [employer] of Nephrology Task Force. Blood VENOUS BLOOD / Unknown Venipuncture / Unknown 09/29/2024 11:25 AM EDT 09/29/2024 11:27 AM EDT us Jj De La Paz MD CHEMISTRY ORDERABLES Final Resu lt [facility] [address] [place] [address] * (ABNORMAL) CBC (09/29/2024 10:56 AM EDT) WBC 9.3 3.7 - 10.3 x10(3)/mcL 09/29/2024 11:04 AM EDT [facility] RBC 4.82 4.60 - 6.10 x10(6)/mcL 09/29/2024 11:04 AM EDT [facility] Hgb 16.3 13.7 - 17.5 g/dL 09/29/2024 11:04 AM EDT [facility] Hct 49.1 40.0 - 51.0 % 09/29/2024 11:04 AM EDT [facility] MCV 101.9(H) 80.0 - 100.0 fL 09/29/2024 11:04 AM EDT [facility] MCH 33.8 26.0 - 34.0 pg 09/29/2024 11:04 AM EDT [facility] MCHC 33.2 30.7 - 35.5 g/dL 09/29/2024 11:04 AM EDT [facility] RDW 12.8 <=14.9 % 09/29/2024 11:04 AM EDT [facility] Platelet 231 155 - 369 x10(3)/mcL 09/29/2024 11:04 AM EDT [facility] MPV 8.9 8.8 - 12.5 fL 09/29/2024 11:04 AM EDT [facility] Blood VENOUS BLOOD / Unknown Venipuncture / Unknown 09/29/2024 10:56 AM EDT 09/29/2024 11:01 AM EDT us Jj De La Paz MD HEMATOLOGY ORDERABLES Final Res ult [facility] [address] [place] [address] from Last 3 Months Insurance [facility] [employer] [place] MDR Care Teams Gauge Machine Operator Relationship Specialty Start Date End Date Nonstaff, Referring PCP - General 09/26/24
--- OUTSIDE RECORDS SUMMARY | 2024-12-25 10:46 | XMS_ITS | Encounter Summary ---
Author Organization [facility] Address [address] [place] [address] Care Team Providers Care Clerk Guide Name Role Phone Unavailable Primary Care Provider Unavailabl e Reason for Referral * Consultation (Routine) - Authorized Specialty Diagnoses / Procedures Referred By Contac t Referred To Contact Hematology and Oncology Diagnoses Abnormal ultrasound of breast Nipple discharge Gerald Jimenez MD [address] [place] [address] Phone: tel: fax: [facility] [address] [facility], [address] [place] [address] Phone: tel: fax: Referral ID Status Reason Start Date Expiration Date Visits Requested Visits Authorized [id number] Authorized Specialty Services Required 02/11/2024 08/12/2025 1 1 * Consultation (Routine) - Authorized Specialty Diagnoses / Procedures Referred By Contac t Referred To Contact General, Endocrine & Minimally Invasive Surgery / General Surgery Diagnoses Abnormal ultrasound of breast Nipple discharge Gerald Jimenez MD [address] [place] [address] Phone: tel: fax: Referral ID Status Reason Start Date Expiration Date Visits Requested Visits Authorized [id number] Authorized Specialty Services Required 02/10/2024 08/11/2025 1 1 Encounter Details Date Type Department Care Team (Late st Contact Info) Description 02/10/2024 Community [facility] [address] [place] [address] Gerald Jimenez MD [address] [place] [address] Abnormal ultrasound of breast (Primary Dx); Nipple [...]
== END 2024-12-25 23:59 | disposition home or self-care (01) ==
LOC: INF 10:45
PROVIDERS: PCP Family Medicine; Visit Provider Surgery
DX: N61.1 Abscess of the breast and nipple (principal)
CPT/HCPCS: G0463

== ENCOUNTER 2024-12-29 13:35 | Outpatient (CLI) | payer OTHER, MEDICAID, SELFPAY ==
[2024-12-29] MEDS: KETOROLAC 30MG/ML VIAL 30 MG (13:40)
--- OUTSIDE RECORDS SUMMARY | 2024-12-29 13:40 | XMS_ITS | Clinical Summary ---
Author Organization [facility] Address [address] [place] [address] Phone Care Team Providers Care Plastic Tile Setter Name Role Phone Nonstaff, Referring Primary Care [...] Hospital Encounter GRT XRAY [address] [place], [place] [id number] Ureteral calculus Discharge Disposition: Home or Self Care 09/29/2024 10:41 AM EDT - 09/29/2024 1:35 PM EDT Emergency [facility] [address] [place], [place] [id number] Jj De La Paz MD Left ureteral stone (Primary Dx) Discharge Disposition: Home or Self Care 09/29/2024 Travel from Last 3 Months Surgical History [...] of 2 - PCV) 1998 COVID-19 Vaccine (2023-2 5 season) 2024 Cologuard 2024 Colon Cancer [...] 10/01/2024 8:43 AM CLINICAL HISTORY: N20.1-Calculus of hnzosn-DLV-58-CM COMPARISON: CT September 29, 2024 PROCEDURE COMMENTS: [...] 10/01/2024 8:43 AM CLINICAL HISTORY: N20.1-Calculus of abydlj-UEO-54-CM COMPARISON: CT September 29, 2024 PROCEDURE COMMENTS: [...] contactthe office of the ordering clinician. us Jj De La Paz MD IMG CT ORDERABLES Final Result * (ABNORMAL) URINALYSIS REFLEX (09/29/2024 11:25 AM EDT) UA Color Yellow 09/29/2024 11:36 AM [facility] UA Appear Clear Clear 09/29/2024 11:36 AM [facility] UA Glucose Negative Negative mg/dL 09/29/2024 11:36 AM [facility] UA Ketones Negative Negative mg/dL 09/29/2024 11:36 AM [facility] UA Blood Large(A) Negative 09/29/2024 11:36 AM [facility] UA pH 6.0 5.0 - 8.0 pH 09/29/2024 11:36 AM [facility] UA Protein 100(A) Negative mg/dL 09/29/2024 11:36 AM [facility] UA Urobilinogen 0.2 <=1 mg/dL 11:36 AM [facility] UA Bili Negative Negative 09/29/2024 11:36 AM [facility] UA Nitrite Negative Negative 09/29/2024 11:36 AM [facility] UA Leuk Est Small(A) Negative 09/29/2024 11:36 AM [facility] UA Spec Grav 1.020 1.001 - 1.035 no units 09/29/2024 11:36 AM [facility] Comment:Reference range teddy d for random specimens only. UA WBC 5(H) 0 - 4 /HPF 09/29/2024 11:36 AM [facility] UA RBC 30(H) 0 - 3 /HPF 09/29/2024 11:36 AM [facility] Urine STRUCTURE OF URINARY TRACT PROPER / Unknown 09/29/2024 11:25 AM EDT 09/29/2024 11:27 AM EDT us Jj De La Paz MD URINE ORDERABLES Final Result Performing Organization Address City/[facility]/ZIP Co de Phone Number [facility] [address] [place] [address] * EXTRA AHMADI URINE CX (09/29/2024 11:25 AM EDT) Urine STRUCTURE OF URINARY TRACT PROPER / Unknown 09/29/2024 11:25 AM EDT 09/29/2024 11:27 AM EDT us Jj De La Paz MD MICROBIOLOGY - GENERAL ORDERABL ES Final Result Performing Organization Address [facility] Co de Phone Number [facility] [address] [place] [address] * URINE CULTURE (NO STAIN) (09/29/2024 11:25 AM EDT) Culture No growth at 30 hours. 09/30/2024 10:00 PM EDT [employer] Urine STRUCTURE OF URINARY TRACT PROPER / Unknown 09/29/2024 11:25 AM EDT 09/29/2024 11:36 AM EDT us Jj De La Paz MD MICROBIOLOGY - GENERAL ORDERABL ES Final Result Performing Organization Address [facility] Co de Phone Number [employer] [address] [place] [address] , [place] [address] * LIPASE LEVEL (09/29/2024 11:25 AM EDT) Lipase Lvl 40 13 - 60 U/L 09/29/2024 11:46 AM EDT [facility] Blood VENOUS BLOOD / Unknown Venipuncture / Unknown 09/29/2024 11:25 AM EDT 09/29/2024 11:27 AM EDT us Jj De La Paz MD CHEMISTRY ORDERABLES Final Resu lt Performing Organization Address City/[facility]/ZIP Co de Phone Number [facility] [address] [place] [address] * (ABNORMAL) COMPREHENSIVE METABOLIC PANEL (09/29/2024 11:25 AM [facility]) Sodium 140 136 - 145 mmol/L 09/29/2024 11:46 AM [facility] Potassium 3.4(L) 3.5 - 5.0 mmol/L 09/29/2024 11:46 AM [facility] Chloride 102 98 - 107 mmol/L 09/29/2024 11:46 AM [facility] Total CO2 27 22 - 29 mmol/L 09/29/2024 11:46 AM [facility] Anion Gap 11 7 - 16 mmol/L 09/29/2024 11:46 AM [facility] Calcium 8.8 8.6 - 10.4 mg/dL 09/29/2024 11:46 AM [facility] Glucose Lvl 104(H) 70 - 99 mg/dL 09/29/2024 11:46 AM [facility] BUN 8 6 - 20 mg/dL 09/29/2024 11:46 AM [facility] Creatinine 0.70 0.67 - 1.30 mg/dL 09/29/2024 11:46 AM [facility] Albumin 4.1 3.5 - 5.2 gm/dL 09/29/2024 11:46 AM [facility] Total Protein 6.6 6.4 - 8.3 gm/dL 09/29/2024 11:46 AM [facility] Bili Total 0.6 0.2 - 1.4 mg/dL 09/29/2024 11:46 AM [facility] ALT 33 <=41 U/L 09/29/2024 11:46 AM [facility] AST 21 <=40 U/L 09/29/2024 11:46 AM [facility] Alk Phos 72 40 - 129 U/L 09/29/2024 11:46 AM [facility] eGFR (CKD-EPIcr 2020) 116 >=60 mL/min/1.7 3 m2 09/29/2024 11:46 AM [facility] Comment:Estimated GFR was ca lculated using the CKD-EPIcr (2020) equation refit without race. The equation is recommended by the National Kidney Foundation - [place] [employer] of Nephrology Task Force. Blood VENOUS BLOOD / Unknown Venipuncture / Unknown 09/29/2024 11:25 AM EDT 09/29/2024 11:27 AM EDT us Jj De La Paz MD CHEMISTRY ORDERABLES Final Resu lt [facility] [address] [place] [address] * (ABNORMAL) CBC (09/29/2024 10:56 AM EDT) WBC 9.3 3.7 - 10.3 x10(3)/mcL 09/29/2024 11:04 AM EDT [facility] RBC 4.82 4.60 - 6.10 x10(6)/mcL 09/29/2024 11:04 AM EDT [facility] Hgb 16.3 13.7 - 17.5 g/dL 09/29/2024 11:04 AM EDT [facility] Hct 49.1 40.0 - 51.0 % 09/29/2024 11:04 AM EDT [facility] MCV 101.9(H) 80.0 - 100.0 fL 09/29/2024 11:04 AM EDT [facility] MCH 33.8 26.0 - 34.0 pg 09/29/2024 11:04 AM EDT [facility] MCHC 33.2 30.7 - 35.5 g/dL 09/29/2024 11:04 AM EDT [facility] RDW 12.8 <=14.9 % 09/29/2024 11:04 AM EDT [facility] Platelet 231 155 - 369 x10(3)/mcL 09/29/2024 11:04 AM EDT [facility] MPV 8.9 8.8 - 12.5 fL 09/29/2024 11:04 AM EDT [facility] Blood VENOUS BLOOD / Unknown Venipuncture / Unknown 09/29/2024 10:56 AM EDT 09/29/2024 11:01 AM EDT us Jj De La Paz MD HEMATOLOGY ORDERABLES Final Res ult [facility] [address] [place] [address] from Last 3 Months Insurance [facility] [employer] [place] MDR Care Teams Plastic Tile Setter Relationship Specialty Start Date End Date Nonstaff, Referring PCP - General 09/26/24
--- OUTSIDE RECORDS SUMMARY | 2024-12-29 13:40 | XMS_ITS | Clinical Summary ---
Author Organization Healthcare Address [address] [place] [address] Care Team Providers Care Orthopedic Surgeon Name Role Phone Unavailable Primary Care Provider [...] of 3 - 19+ 3-dose series) 1998 [id number]-[id number]-89 Vaccine (1 - 20 24-25 season) 2024 [...]
--- OUTSIDE RECORDS SUMMARY | 2024-12-29 13:40 | XMS_ITS | Encounter Summary ---
Author Organization [facility] Address [address] [place] [address] Care Team Providers Care Deputy K 9 Name Role Phone Unavailable Primary Care Provider Unavailabl e Reason for Referral * Consultation (Routine) - Authorized Specialty Diagnoses / Procedures Referred By Contac t Referred To Contact Hematology and Oncology Diagnoses Abnormal ultrasound of breast Nipple discharge Gerald Jimenez MD [address] [place] [address] Phone: tel: fax: [facility] [address] [facility], [address] [place] [address] Phone: tel: fax: Referral ID Status Reason Start Date Expiration Date Visits Requested Visits Authorized [id number] Authorized Specialty Services Required 02/11/2024 08/12/2025 1 1 * Consultation (Routine) - Authorized Specialty Diagnoses / Procedures Referred By Contac t Referred To Contact General, Endocrine & Minimally Invasive Surgery / General Surgery Diagnoses Abnormal ultrasound of breast Nipple discharge Gerald Jimenez MD [address] [place] [address] Phone: tel: fax: Referral ID Status Reason Start Date Expiration Date Visits Requested Visits Authorized [id number] Authorized Specialty Services Required 02/10/2024 08/11/2025 1 1 Encounter Details Date Type Department Care Team (Late st Contact Info) Description 02/10/2024 Community [facility] Practice [address] [place] [address] Gerald Jimenez MD [address] [place] [address] Abnormal ultrasound of breast (Primary Dx); Nipple [...]
[2024-12-29 14:12] VITALS: BP 161/89; PULSE 86; RESP 18; O2SAT 96
== END 2024-12-29 14:12 | disposition home or self-care (01) ==
LOC: INF 13:37
PROVIDERS: PCP Nurse Practitioner; Visit Provider Surgery
DX: N61.1 Abscess of the breast and nipple (principal)
CPT/HCPCS: 96372; J1885

== ENCOUNTER 2025-02-02 08:12 | Emergency (ER) | payer OTHER, SELFPAY ==
[2025-02-02 08:22] VITALS: BP 128/83; PULSE 71; RESP 15; TEMP 36.8; O2SAT 100; BMI 28.5
--- NOTE | 2025-02-02 08:30 | PC.NURSE ---
paged general surgery at this time.
--- OUTSIDE RECORDS SUMMARY | 2025-02-02 08:35 | XMS_ITS | Clinical Summary ---
Author Organization Healthcare Address [address] [place] [address] Care Team Providers Care Tray Room Worker Name Role Phone Unavailable Primary Care Provider [...] C Screening 1979 [facility]-Infant/Child/Adol SDOH Screenings 1979 [facility]- SDOH Screenings 1997 [facility]-Adult SDOH Screenings 1997 [facility]-DTaP,Tdap,and Td Vaccine s (1 - Tdap) 1998 [facility]-Hepatitis B Vaccines (1 of 3 - 19+ 3-dose series) 1998 HPV Vaccines (1 - 3-dose SCD M series) 2006 [facility]M-[id number]-50 Vaccine (1 - 20 24-25 season) 2024 [...]
--- OUTSIDE RECORDS SUMMARY | 2025-02-02 08:35 | XMS_ITS | Encounter Summary ---
Author Organization [facility] Address [address] [place] [address] Care Team Providers Care Public Address System Mechanic Name Role Phone Unavailable Primary Care Provider Unavailabl e Reason for Referral * Consultation (Routine) - Authorized Specialty Diagnoses / Procedures Referred By Contac t Referred To Contact Hematology and Oncology Diagnoses Abnormal ultrasound of breast Nipple discharge Gerald Jimenez MD [address] [place] [address] Phone: tel: fax: [facility] [address] [facility], [address] [place] [address] Phone: tel: fax: Referral ID Status Reason Start Date Expiration Date Visits Requested Visits Authorized [id number] Authorized Specialty Services Required 02/11/2024 08/12/2025 1 1 * Consultation (Routine) - Authorized Specialty Diagnoses / Procedures Referred By Contac t Referred To Contact General, Endocrine & Minimally Invasive Surgery / General Surgery Diagnoses Abnormal ultrasound of breast Nipple discharge Gerald Jimenez MD [address] [place] [address] Phone: tel: fax: Referral ID Status Reason Start Date Expiration Date Visits Requested Visits Authorized [id number] Authorized Specialty Services Required 02/10/2024 08/11/2025 1 1 Encounter Details Date Type Department Care Team (Late st Contact Info) Description 02/10/2024 Community [facility] Community Practice [address] [place] [address] Gerald Jimenez MD [address] [place] [address] Abnormal ultrasound of breast (Primary Dx); Nipple [...]
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
[2025-02-02] MEDS: ACETAMINOPHEN 500MG TAB 1000 MG PO (08:44)
[2025-02-02] MEDS: OXYCODONE 5MG IMMEDIATE RELEASE TABLET 5 MG PO (08:44)
[2025-02-02 08:47] VITALS: BP 135/89; PULSE 85; RESP 16; TEMP 36.8; O2SAT 99
== END 2025-02-02 08:48 | disposition other institution (70) ==
PROVIDERS: Emergency Provider Emergency Medicine; PCP Nurse Practitioner
DX: N61.1 Abscess of the breast and nipple (principal); F17.210 Nicotine dependence, cigarettes, uncomplicated
CPT/HCPCS: 10060; 99283

== ENCOUNTER 2025-02-02 09:52 | Outpatient (CLI) | payer OTHER, MEDICAID, SELFPAY ==
--- NOTE | 2025-02-02 08:40 | ECG_ITS ---
APPROVED REPORT Exam: Resting ECG HR:60 bpm ECG Measurements Heart Rate 60 AXES CA 160 P 47 QRSd 134 QRS -38 QT 403 T 29 QTc 404 Conclusion SINUS RHYTHM LEFT AXIS DEVIATION [QRS AXIS < -30] INTRAVENTRICULAR CONDUCTION DELAY [130+ ms QRS DURATION] POSSIBLE LATERAL MYOCARDIAL INFARCTION , OF INDETERMINATE AGE [30 ms Q WAVE IN I/aVL/V5/V6] ABNORMAL ECG Electronically signed by : GUS MCFADDEN, 02/20/2025 08:49:23
[2025-02-02 09:56] VITALS: BMI 28.5
--- OUTSIDE RECORDS SUMMARY | 2025-02-02 09:58 | XMS_ITS | Clinical Summary ---
Author Organization Healthcare Address [address] [place] [address] Care Team Providers Care Senior Mechanical Engineer Name Role Phone Unavailable Primary Care Provider [...] (1 - 3-dose SCD M series) 2006 [id number] Vaccine (1 - 20 24-25 season) 2024 [...]
--- OUTSIDE RECORDS SUMMARY | 2025-02-02 09:58 | XMS_ITS | Encounter Summary ---
Author Organization [facility] Address [address] [place] [address] Care Team Providers Care Slate Roofer Helper Name Role Phone Unavailable Primary Care Provider Unavailabl e Reason for Referral * Consultation (Routine) - Authorized Specialty Diagnoses / Procedures Referred By Contac t Referred To Contact Hematology and Oncology Diagnoses Abnormal ultrasound of breast Nipple discharge Gerald Jimenez MD [address] [place] [address] Phone: tel: fax: [facility] [address] [facility], [address] [place] [address] Phone: tel: fax: Referral ID Status Reason Start Date Expiration Date Visits Requested Visits Authorized [id number] Authorized Specialty Services Required 02/11/2024 08/12/2025 1 1 * Consultation (Routine) - Authorized Specialty Diagnoses / Procedures Referred By Contac t Referred To Contact General, Endocrine & Minimally Invasive Surgery / General Surgery Diagnoses Abnormal ultrasound of breast Nipple discharge Gerald Jimenez MD [address] [place] [address] Phone: tel: fax: Referral ID Status Reason Start Date Expiration Date Visits Requested Visits Authorized [id number] Authorized Specialty Services Required 02/10/2024 08/11/2025 1 1 Encounter Details Date Type Department Care Team (Late st Contact Info) Description 02/10/2024 [facility] [address] [place] [address] Gerald Jimenez MD [address] [place] [address] Abnormal ultrasound of breast (Primary Dx); Nipple [...]
[2025-02-02 10:37] LABS: Hematocrit 42.7 % (42.0-52.0); Hemoglobin 15.2 g/dL (14.1-18.0); Immature Granulocytes % 0.9 %; Mean Corpuscular HGB Conc 35.6 g/dL (31.8-35.4); Mean Corpuscular Hemoglobin 36.5 pg (27.0-31.2); Mean Corpuscular Volume 102.4 fl (80-94); Nucleated Red Blood Cells % 0 %; Platelet Count 235 K/mm3 (142-424); Red Blood Count 4.17 M/mm3 (4.60-6.20); Red Cell Distribution Width-SD 51.5 fL; White Blood Count 8.9 K/mm3 (4.8-10.8)
[2025-02-02 10:46] LABS: Alanine Aminotransferase 28 U/L (12-78); Albumin Level 4.3 g/dl (3.5-5.0); Albumin/Globulin Ratio 1.4 (1.1-1.8); Alkaline Phosphatase 63 U/L (38-126); Anion Gap 13.7 mEq/L (5-15); Aspartate Amino Transferase 27 U/L (17-59); Bilirubin,Total 0.5 mg/dl (0.2-1.3); Blood Urea Nitrogen 12 mg/dl (9-20); Calcium 9.1 mg/dl (8.4-10.2); Carbon Dioxide 25 mmol/L (22.0-30.0); Chloride 106 mmol/L (98-107); Creatinine Clearance Estimated 180 mL/min (50-200); Creatinine,Serum 0.70 mg/dl (0.66-1.25); Estimated Glomerular Filt Rate 122 ml/min (>60); GFR (African American) 148 ML/MIN (>60); Globulin 3.0 g/dL (1.3-3.2); Glucose 87 mg/dl (74-100); Potassium 4.7 mmoL/L (3.5-5.1); Sodium 140 mmol/L (136-145); Total Protein,Serum 7.3 g/dl (6.3-8.2)
== END 2025-02-02 23:59 | disposition home or self-care (01) ==
LOC: PREOP 09:53
PROVIDERS: PCP Nurse Practitioner; Visit Provider Surgery
DX: Z01.810 Encounter for preprocedural cardiovascular examination (principal); Z01.812 Encounter for preprocedural laboratory examination; I45.89 Other specified conduction disorders; R94.31 Abnormal electrocardiogram [ECG] [EKG]
CPT/HCPCS: 80053; 85025; 93005

== ENCOUNTER 2025-02-03 08:36 | Day surgery (SDC) | payer OTHER, SELFPAY ==
[2025-02-02 11:20] VITALS: BMI 28.5
[2025-02-03] VITALS (9 sets, daily range): BP systolic 123–230; BP diastolic 61–90; PULSE 61–76; RESP 14–18; TEMP 36.4–36.7; O2SAT 91–100
[2025-02-03] MEDS: 0.9 % SODIUM CHLORIDE 1000ML 1,000 ML 25 ML IV (09:10)
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
[2025-02-03] MEDS: CLINDAMYCIN PHOSPHATE/D5W 900 MG/50 ML PIGGYBACK 100 MG IV (11:44)
[2025-02-03] MEDS: LIDOCAINE 1% 20ML MDV 20 ML (11:45)
--- NOTE | 2025-02-03 12:00 | EXP.OP.NOTE ---
Date of procedure: 02/03/25 Pre-op Diagnosis:: Complex deep subareolar left breast abscess Post-op Diagnosis:: Same Procedure performed:: Incision and drainage of complex deep left subareolar breast abscess Surgeon:: Remy Mcnally MD Anesthesia: local and LMA Estimated blood loss (mL): 10 Operative findings:: Complex large pocket of purulence in the deep breast tissue centrally Operative note:: After informed consent was obtained the patient was taken to the operating room and placed in the supine position. General anesthesia was induced and his left breast was prepped and draped in a sterile fashion. A curvilinear medial areolar margin incision was made with electrocautery. The dissection was taken into the deep subareolar breast tissue. A large pocket of purulence was encountered. The purulent cavity was evacuated. Fluid was obtained for Gram stain/culture. The cavity was packed with Kerlix. The entire region was infiltrated with 1% lidocaine. Dressings were applied and the patient was transferred to recovery in stable condition. Condition: stable Disposition: PACU Specimens:: Fluid for Gram stain/culture Complications:: No immediate
--- NOTE | 2025-02-03 12:05 | P.PNANES_ITS ---
[facility] Anesthesia Record Part I Anesthesia Record I Intake, IV Amount: 400 Hydration: Adequate Estimated blood loss (mL): 10 Urine output (mL): 0 Blood Products used (#): none Blood Pressure: 230/74 SaO2: 91 Pulse Rate: 64 Airway Patency: Patent Respiratory Rate: 14 Temperature: 98.1 F Patient is:: Drowsy and Stable Stable to PACU at:: 12:00
--- NOTE | 2025-02-04 10:44 | EXP.ANES.II ---
[facility] Anesthesia Record Part II Anesthesia Record Part II Discharge Time: 12:30 Destination: Surgical Day Care (OP Surgery) PACU nurse assessment reviewed?: Yes Patient Condition:: Good Anesthesia Complications:: None Swallowing reflex intact?: Yes Airway Patency: Patent Cyanosis?: No Blood Pressure: 139/70 SaO2: 98 Respiratory Rate: 16 Pulse Rate: 64 Temperature: 97.6 F Mental Status: Alert & Oriented Pain level:: 0 Nausea and/or vomitting:: None Intake, IV Amount: 0 Hydration: Adequate
[2025-02-04 10:45] VITALS: BP 139/70; PULSE 64; RESP 16; TEMP 36.4; O2SAT 98
== END 2025-02-03 13:10 | disposition home or self-care (01) ==
PROVIDERS: PCP Nurse Practitioner; Visit Provider Surgery
PROC: (CPT 19020; principal; 2025-02-03 11:00)
DX: N61.1 Abscess of the breast and nipple (principal); F17.210 Nicotine dependence, cigarettes, uncomplicated
CPT/HCPCS: 19020; 87205; 96374; J0736; J1100; J2003; J2250; J2405; J2704; J3010; J7030

== ENCOUNTER 2025-02-04 08:15 | Outpatient (CLI) | payer OTHER, SELFPAY ==
--- OUTSIDE RECORDS SUMMARY | 2025-02-04 08:37 | XMS_ITS | Encounter Summary ---
Author Organization [facility] Address [address] [place] [address] Care Team Providers Care Cover Inspector Name Role Phone Unavailable Primary Care Provider Unavailabl e Reason for Referral * Consultation (Routine) - Authorized Specialty Diagnoses / Procedures Referred By Contac t Referred To Contact Hematology and Oncology Diagnoses Abnormal ultrasound of breast Nipple discharge Gerald Jimenez MD [address] [place] [address] Phone: tel: fax: [facility] [address] [facility], [address] [place] [address] Phone: tel: fax: Referral ID Status Reason Start Date Expiration Date Visits Requested Visits Authorized [id number] Authorized Specialty Services Required 02/11/2024 08/12/2025 1 1 * Consultation (Routine) - Authorized Specialty Diagnoses / Procedures Referred By Contac t Referred To Contact General, Endocrine & Minimally Invasive Surgery / General Surgery Diagnoses Abnormal ultrasound of breast Nipple discharge Gerald Jimenez MD [address] [place] [address] Phone: tel: fax: Referral ID Status Reason Start Date Expiration Date Visits Requested Visits Authorized [id number] Authorized Specialty Services Required 02/10/2024 08/11/2025 1 1 Encounter Details Date Type Department Care Team (Late st Contact Info) Description 02/10/2024 [facility] [address] [place] [address] Gerald Jimenez MD [address] [place] [address] Abnormal ultrasound of breast (Primary Dx); Nipple [...]
--- OUTSIDE RECORDS SUMMARY | 2025-02-04 08:37 | XMS_ITS | Clinical Summary ---
Author Organization Healthcare Address [address] [place] [address] Care Team Providers Care Roto Rooter Operator Name Role Phone Unavailable Primary Care [...] (1 - 3-dose SCD M series) 2006 [id number] Vaccine (1 - 20 24-25 season) 2024 [...]
== END 2025-02-04 08:31 | disposition home or self-care (01) ==
LOC: INF 08:16
PROVIDERS: PCP Nurse Practitioner; Visit Provider Surgery
DX: Z48.00 Encounter for change or removal of nonsurgical wound dressing (principal)
CPT/HCPCS: G0463

== ENCOUNTER 2025-02-28 07:31 | Outpatient (CLI) | payer OTHER, SELFPAY ==
--- OUTSIDE RECORDS SUMMARY | 2025-02-28 07:34 | XMS_ITS | Clinical Summary ---
Author Organization Healthcare Address [address] [place] [address] Care Team Providers Care Main Line Assembler Name Role Phone Unavailable Primary Care Provider [...] (1 - 3-dose SCD M series) 2006 CT Colonography 2024 Colonoscopy 2024 FIT-DNA 2024 FIT 2024 FOBT 2024 Sigmoidoscopy 2024 [facility]-Colorectal Cancer Screening 2024 [id number]-97 Vaccine (1 - 20 24-25 season) 2025 [facility]-Influenza Vaccine (#1) 2025 [facility]-Zoster Vaccines (1 [...]
--- OUTSIDE RECORDS SUMMARY | 2025-02-28 07:34 | XMS_ITS | Encounter Summary ---
Author Organization [facility] Address [address] [place] [address] Care Team Providers Care Finisher Accordion Name Role Phone Unavailable Primary Care Provider Unavailabl e Reason for Referral * Consultation (Routine) - Authorized Specialty Diagnoses / Procedures Referred By Contac t Referred To Contact Hematology and Oncology Diagnoses Abnormal ultrasound of breast Nipple discharge Gerald Jimenez MD [address] [place] [address] Phone: tel: fax: [facility] [address] [facility], [address] [place] [address] Phone: tel: fax: Referral ID Status Reason Start Date Expiration Date Visits Requested Visits Authorized [id number] Authorized Specialty Services Required 02/11/2024 08/12/2025 1 1 * Consultation (Routine) - Authorized Specialty Diagnoses / Procedures Referred By Contac t Referred To Contact General, Endocrine & Minimally Invasive Surgery / General Surgery Diagnoses Abnormal ultrasound of breast Nipple discharge Gerald Jimenez MD [address] [place] [address] Phone: tel: fax: Referral ID Status Reason Start Date Expiration Date Visits Requested Visits Authorized [id number] Authorized Specialty Services Required 02/10/2024 08/11/2025 1 1 Encounter Details Date Type Department Care Team (Late st Contact Info) Description 02/10/2024 [facility] [address] [place] [address] Gerald Jimenez MD [address] [place] [address] Abnormal ultrasound of breast (Primary Dx); Nipple [...]
--- NOTE | 2025-02-28 08:00 | US_ITS ---
FINAL REPORT CLINICAL HISTORY: LT BREAST RETROAREOLAR - DR. SAMMY CARVALHO FINDINGS: Ultrasound-guided aspiration left breast Technique: Standard written informed consent was obtained. Patient has undergone recent surgical drainage of retroareolar fluid collection. Small hypoechoic area was seen in the region of the retroareolar left breast. This was likely a combination of postoperative change with edema and minimal fluid. Local anesthesia was achieved with 1% lidocaine. An 18-gauge needle was directed into the central portion of the potential fluid collection. Only very minimal fluid could be aspirated, less than 1 mL. This was submitted for culture. There is no soft tissue mass. IMPRESSION: Technicallly successful ultrasound-guided aspiration retroareolar left breast minimal fluid Authenticated and ERN
== END 2025-02-28 23:59 | disposition home or self-care (01) ==
LOC: RAD 07:32
PROVIDERS: PCP Nurse Practitioner; Visit Provider Surgery
DX: N61.1 Abscess of the breast and nipple (principal)
CPT/HCPCS: 10005

== ENCOUNTER 2025-03-08 15:30 | Outpatient (CLI) | payer OTHER, SELFPAY ==
[2025-03-08 19:11] LABS: Coronavirus 19, PCR Not Detected (NotDetected); Influenza A, PCR Not Detected (NotDetected); Influenza B, PCR Not Detected (NotDetected)
[2025-03-08 19:39] LABS: Hematocrit 44.6 % (42.0-52.0); Hemoglobin 15.4 g/dL (14.1-18.0); Immature Granulocytes % 1.6 %; Mean Corpuscular HGB Conc 34.5 g/dL (31.8-35.4); Mean Corpuscular Hemoglobin 36.4 pg (27.0-31.2); Mean Corpuscular Volume 105.4 fl (80-94); Nucleated Red Blood Cells % 0 %; Platelet Count 259 K/mm3 (142-424); Red Blood Count 4.23 M/mm3 (4.60-6.20); Red Cell Distribution Width-SD 50.3 fL; White Blood Count 8.7 K/mm3 (4.8-10.8)
--- OUTSIDE RECORDS SUMMARY | 2025-03-08 22:39 | XMS_ITS | Clinical Summary ---
Author Organization Healthcare Address [address] [place] [address] Care Team Providers Care Major Sales Associate Name Role Phone Unavailable Primary Care Provider [...] [facility]-HIV Screening 1979 [facility]-Hepatitis C Screening 1979 [facility]-/Child/Adol SDOH Screenings 1979 [facility]- SDOH Screenings 1997 [facility]-Adult SDOH Screenings 1997 [facility]-DTaP,Tdap,and Td Vaccine s (1 - Tdap) 1998 [facility]-Hepatitis B Vaccines (1 of 3 - 19+ 3-dose series) 1998 HPV Vaccines (1 - 3-dose SCD M series) 2006 CT Colonography 2024 Colonoscopy 2024 FIT-DNA 2024 FIT 2024 FOBT 2024 Sigmoidoscopy 2024 [facility]-Colorectal Cancer Screening 2024 [id number]-14 Vaccine (1 - 20 24-25 season) 2025 [...]
--- OUTSIDE RECORDS SUMMARY | 2025-03-08 22:39 | XMS_ITS | Encounter Summary ---
Author Organization [facility] Address [address] [place] [address] Care Team Providers Care Medical Nurse Name Role Phone Unavailable Primary Care Provider Unavailabl e Reason for Referral * Consultation (Routine) - Authorized Specialty Diagnoses / Procedures Referred By Contac t Referred To Contact Hematology and Oncology Diagnoses Abnormal ultrasound of breast Nipple discharge Gerald Jimenez MD [address] [place] [address] Phone: tel: fax: [facility] [address] [facility], [address] [place] [address] Phone: tel: fax: Referral ID Status Reason Start Date Expiration Date Visits Requested Visits Authorized [id number] Authorized Specialty Services Required 02/11/2024 08/12/2025 1 1 * Consultation (Routine) - Authorized Specialty Diagnoses / Procedures Referred By Contac t Referred To Contact General, Endocrine & Minimally Invasive Surgery / General Surgery Diagnoses Abnormal ultrasound of breast Nipple discharge Gerald Jimenez MD [address] [place] [address] Phone: tel: fax: Referral ID Status Reason Start Date Expiration Date Visits Requested Visits Authorized [id number] Authorized Specialty Services Required 02/10/2024 08/11/2025 1 1 Encounter Details Date Type Department Care Team (Late st Contact Info) Description 02/10/2024 [facility] [address] [place] [address] Gerald Jimenez MD [address] [place] [address] Abnormal ultrasound of breast (Primary Dx); Nipple [...]
== END 2025-03-08 23:59 | disposition home or self-care (01) ==
LOC: LAB.DROPOF 22:37
PROVIDERS: PCP Family Medicine; Visit Provider Family Medicine
DX: J40 Bronchitis, not specified as acute or chronic (principal)
CPT/HCPCS: 85025; 87636

== ENCOUNTER 2025-03-16 09:25 | Day surgery (SDC) | payer OTHER, SELFPAY ==
[2025-03-15 13:43] VITALS: BMI 29.8
[2025-03-16] VITALS (10 sets, daily range): BP systolic 130–150; BP diastolic 78–87; PULSE 62–84; RESP 16–18; TEMP 36.4–36.6; O2SAT 96–100
[2025-03-16] MEDS: 0.9 % SODIUM CHLORIDE 1000ML 1,000 ML 25 ML IV (10:05)
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
[2025-03-16] MEDS: CLINDAMYCIN PHOSPHATE/D5W 900 MG/50 ML PIGGYBACK 100 MG IV (12:30)
[2025-03-16] MEDS: LIDOCAINE 1% 20ML MDV 20 ML (12:42)
--- NOTE | 2025-03-16 13:03 | P.OP_ITS ---
Date of procedure: 03/16/25 Pre-op Diagnosis:: Recurrent right breast abscess Post-op Diagnosis:: Same Procedure performed:: Incision and drainage/debridement of recurrent right breast abscess Surgeon:: Remy Mcnally MD Anesthesia: local and LMA Estimated blood loss (mL): 15 Operative findings:: Extensive granulation tissue and patchy necrosis approaching areolar skin margin Operative note:: After informed consent was obtained the patient was taken to the operating room and placed in the supine position. General anesthesia with laryngeal mask airway was achieved. His right breast was prepped and draped in a sterile fashion. An incision was made along the medial areolar margin (overlying prior incision and drainage site). Electrocautery was used to transect through the subcutaneous tissue. Extensive granulation tissue with patchy necrosis was immediately encountered. As dissection in the subcutaneous tissue below the areolar complex was extended laterally, patchy necrosis to the level of the skin margin was noted. A small portion of the inferior areolar margin skin was resected as part of the dissection. The underlying breast tissue was then excised utilizing electrocautery and passed off as a single specimen. Diss ection was taken into the deeper subcutaneous breast tissue. Electrocautery was utilized to achieve hemostasis and the wound was then irrigated. The inferior margin defect was loosely reapproximated with interrupted Vicryl suture. The superior lateral margin of the areolar incision was then loosely reapproximated with a combination of Vicryl suture and a single 4-0 nylon. The wound was then packed with Kerlix and the entire region was infiltrated with 1% lidocaine. Dressings were applied and the patient was transferred to recovery in stable condition. Condition: stable Disposition: PACU Specimens:: Recurrent right breast abscess with necrotic/granulation tissue Complications:: No immediate
--- NOTE | 2025-03-16 13:11 | P.PNANES_ITS ---
[facility] Anesthesia Record Part I Anesthesia Record I Intake, IV Amount: 1,000 Hydration: Adequate Estimated blood loss (mL): 0 Urine output (mL): 0 Blood Pressure: 144/80 SaO2: 96 Pulse Rate: 63 Airway Patency: Patent Respiratory Rate: 16 Temperature: 97.8 F Patient is:: Awake and Stable Stable to PACU at:: 13:10
[2025-03-16] MEDS: MORPHINE 2MG/ML SYRINGE 2 MG IV (13:25)
--- NOTE | 2025-03-16 16:34 | EXP.ANES.II ---
[facility] Anesthesia Record Part II Anesthesia Record Part II Discharge Time: 14:12 Destination: Surgical Day Care (OP Surgery) PACU nurse assessment reviewed?: Yes Patient Condition:: Good Anesthesia Complications:: None Swallowing reflex intact?: Yes Airway Patency: Patent Cyanosis?: No Blood Pressure: 149/84 SaO2: 99 Respiratory Rate: 18 Pulse Rate: 69 Temperature: 97.6 F Mental Status: Alert & Oriented Pain level:: 0 Nausea and/or vomitting:: None Intake, IV Amount: 0 Hydration: Adequate
== END 2025-03-16 14:20 | disposition home or self-care (01) ==
PROVIDERS: PCP Nurse Practitioner; Visit Provider Surgery
PROC: (CPT 19120; principal; 2025-03-16 12:40)
DX: N61.1 Abscess of the breast and nipple (principal); N60.01 Solitary cyst of right breast; Z88.0 Allergy status to penicillin; F17.210 Nicotine dependence, cigarettes, uncomplicated
CPT/HCPCS: 19120; J0736; J1100; J2003; J2250; J2270; J2405; J2704; J3010; J7030

== ENCOUNTER 2025-03-17 08:29 | Outpatient (CLI) | payer OTHER, SELFPAY ==
--- OUTSIDE RECORDS SUMMARY | 2025-03-17 08:45 | XMS_ITS | Clinical Summary ---
Author Organization Healthcare Address [address] [place] [address] Care Team Providers Care Harvesting Supervisor Name Role Phone Unavailable Primary Care Provider [...] 2024 Sigmoidoscopy 2024 [facility]-Colorectal Cancer Screening 2024 [id number] Vaccine (1 - 20 24-25 season) 2025 [...]
--- OUTSIDE RECORDS SUMMARY | 2025-03-17 08:45 | XMS_ITS | Encounter Summary ---
Author Organization [facility] Address [address] [place] [address] Care Team Providers Care Sprinkler Worker Name Role Phone Unavailable Primary Care Provider Unavailabl e Reason for Referral * Consultation (Routine) - Authorized Specialty Diagnoses / Procedures Referred By Contac t Referred To Contact Hematology and Oncology Diagnoses Abnormal ultrasound of breast Nipple discharge Gerald Jimenez MD [address] [place] [address] Phone: tel: fax: [facility] [address] [facility] [place] [address] Phone: tel: fax: Referral ID Status Reason Start Date Expiration Date Visits Requested Visits Authorized [id number] Authorized Specialty Services Required 02/11/2024 08/12/2025 1 1 * Consultation (Routine) - Authorized Specialty Diagnoses / Procedures Referred By Contac t Referred To Contact General, Endocrine & Minimally Invasive Surgery / General Surgery Diagnoses Abnormal ultrasound of breast Nipple discharge Gerald Jimenez MD [address] [place] [address] Phone: tel: fax: Referral ID Status Reason Start Date Expiration Date Visits Requested Visits Authorized [id number] Authorized Specialty Services Required 02/10/2024 08/11/2025 1 1 Encounter Details Date Type Department Care Team (Late st Contact Info) Description 02/10/2024 Community [facility] [address] [place] [address] Gerald Jimenez MD [address] [place] [address] Abnormal ultrasound of breast (Primary Dx); Nipple [...]
== END 2025-03-17 23:59 | disposition home or self-care (01) ==
LOC: INF 08:32
PROVIDERS: PCP Nurse Practitioner; Visit Provider Surgery
DX: Z48.01 Encounter for change or removal of surgical wound dressing (principal)
CPT/HCPCS: 99211; G0463

== ENCOUNTER 2025-03-29 08:13 | Outpatient (CLI) | payer OTHER, SELFPAY ==
--- NOTE | 2025-03-29 08:18 | XR_ITS ---
FINAL REPORT CLINICAL HISTORY: low back pain FINDINGS: LUMBAR SPINE Three views were obtained. There is no acute fracture. There is mild anterior osteophyte formation at T12-L1 and L2-3. There is mild disc space narrowing at L4-5 and L5-S1. There is no malalignment. IMPRESSION: Multilevel degenerative changes. Reviewed, Interpreted and Dictated by Raymundo Londono MD Transcribed by Lauren Sparks Authenticated and [facility]
--- OUTSIDE RECORDS SUMMARY | 2025-03-29 08:18 | XMS_ITS | Clinical Summary ---
Author Organization Healthcare Address [address] [place] [address] Care Team Providers Care Bill Adjuster Name Role Phone Unavailable Primary Care Provider [...] 2024 Sigmoidoscopy 2024 [facility]-Colorectal Cancer Screening 2024 [id number] Vaccine (1 - 20 24-25 season) 2025 [...]
--- OUTSIDE RECORDS SUMMARY | 2025-03-29 08:18 | XMS_ITS | Encounter Summary ---
Author Organization [facility] Address [address] [place] [address] Care Team Providers Care Post Splitter Name Role Phone Unavailable Primary Care Provider Unavailabl e Reason for Referral * Consultation (Routine) - Authorized Specialty Diagnoses / Procedures Referred By Contac t Referred To Contact Hematology and Oncology Diagnoses Abnormal ultrasound of breast Nipple discharge Gerald Jimenez MD [address] [place] [address] Phone: tel: fax: [facility] [address] [facility] [place] [address] Phone: tel: fax: Referral ID Status Reason Start Date Expiration Date Visits Requested Visits Authorized [id number] Authorized Specialty Services Required 02/11/2024 08/12/2025 1 1 * Consultation (Routine) - Authorized Specialty Diagnoses / Procedures Referred By Contac t Referred To Contact General, Endocrine & Minimally Invasive Surgery / General Surgery Diagnoses Abnormal ultrasound of breast Nipple discharge Gerald Jimenze MD [address] [place] [address] Phone: tel: fax: Referral ID Status Reason Start Date Expiration Date Visits Requested Visits Authorized [id number] Authorized Specialty Services Required 02/10/2024 08/11/2025 1 1 Encounter Details Date Type Department Care Team (Late st Contact Info) Description 02/10/2024 Community [facility] Community Practice [address] [place] [address] Gerald Jimenez MD [address] [place] [address] Abnormal ultrasound of breast (Primary Dx); Nipple [...]
== END 2025-03-29 23:59 | disposition home or self-care (01) ==
PROVIDERS: PCP Nurse Practitioner; Visit Provider Nurse Practitioner Family
DX: M47.26 Other spondylosis with radiculopathy, lumbar region (principal)
CPT/HCPCS: 72100

== ENCOUNTER 2025-03-29 08:54 | Emergency (ER) | payer OTHER, SELFPAY ==
[2025-03-29 09:03] VITALS: BP 114/73; PULSE 67; RESP 18; TEMP 36.6; O2SAT 97; BMI 29.8
--- OUTSIDE RECORDS SUMMARY | 2025-03-29 09:19 | XMS_ITS | Encounter Summary ---
Author Organization [facility] Address [address] [place] [address] Care Team Providers Care Weigher Operator Name Role Phone Unavailable Primary Care Provider Unavailabl e Reason for Referral * Consultation (Routine) - Authorized Specialty Diagnoses / Procedures Referred By Contac t Referred To Contact Hematology and Oncology Diagnoses Abnormal ultrasound of breast Nipple discharge Gerald Jimenez MD [address] [place] [address] Phone: tel: fax: [facility] [address] [facility] [place] [address] Phone: tel: fax: Referral ID Status Reason Start Date Expiration Date Visits Requested Visits Authorized [id number] Authorized Specialty Services Required 02/11/2024 08/12/2025 1 1 * Consultation (Routine) - Authorized Specialty Diagnoses / Procedures Referred By Contac t Referred To Contact General, Endocrine & Minimally Invasive Surgery / General Surgery Diagnoses Abnormal ultrasound of breast Nipple discharge Gerald Jimenez MD [address] [place] [address] Phone: tel: fax: Referral ID Status Reason Start Date Expiration Date Visits Requested Visits Authorized [id number] Authorized Specialty Services Required 02/10/2024 08/11/2025 1 1 Encounter Details Date Type Department Care Team (Late st Contact Info) Description 02/10/2024 Community [facility] Community [facility] [address] [place] [address] Gerald Jimenez MD [address] [place] [address] Abnormal ultrasound of breast (Primary Dx); Nipple [...]
--- OUTSIDE RECORDS SUMMARY | 2025-03-29 09:19 | XMS_ITS | Clinical Summary ---
Author Organization Healthcare Address [address] [place] [address] Care Team Providers Care Fibre Cement Moulder Name Role Phone Unavailable Primary Care Provider [...] 2024 Sigmoidoscopy 2024 [facility]-Colorectal Cancer Screening 2024 [id number] Vaccine (1 - 20 24-25 season) 2025 [...]
[2025-03-29 09:30] VITALS: BP 124/76; PULSE 61; O2SAT 96
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
--- NOTE | 2025-03-29 10:28 | PC.NURSE ---
Called for possible patient transfer
[2025-03-29 10:31] LABS: Hematocrit 44.4 % (42.0-52.0); Hemoglobin 15.1 g/dL (14.1-18.0); Immature Granulocytes % 1.0 %; Mean Corpuscular HGB Conc 34.0 g/dL (31.8-35.4); Mean Corpuscular Hemoglobin 35.4 pg (27.0-31.2); Mean Corpuscular Volume 104.2 fl (80-94); Nucleated Red Blood Cells % 0 %; Platelet Count 174 K/mm3 (142-424); Red Blood Count 4.26 M/mm3 (4.60-6.20); Red Cell Distribution Width-SD 46.8 fL; White Blood Count 9.0 K/mm3 (4.8-10.8)
[2025-03-29] MEDS: MORPHINE 4MG/ML SYRINGE 4 MG IV (10:31)
[2025-03-29] MEDS: ONDANSETRON 4MG/2ML VIAL 4 MG IV (10:31)
[2025-03-29] MEDS: KETOROLAC 30MG/ML VIAL 30 MG IV (10:31)
[2025-03-29] MEDS: ACETAMINOPHEN 1,000MG/100ML VIAL 1000 MG IV (10:31)
--- NOTE | 2025-03-29 10:33 | PC.NURSE ---
speaking to Dr. Francis now
[2025-03-29 10:41] LABS: Alanine Aminotransferase 37 U/L (12-78); Albumin Level 3.9 g/dl (3.5-5.0); Albumin/Globulin Ratio 1.6 (1.1-1.8); Alkaline Phosphatase 68 U/L (38-126); Anion Gap 9.6 mEq/L (5-15); Aspartate Amino Transferase 32 U/L (17-59); Bilirubin,Total 0.5 mg/dl (0.2-1.3); Blood Urea Nitrogen 11 mg/dl (9-20); Calcium 8.8 mg/dl (8.4-10.2); Carbon Dioxide 26 mmol/L (22.0-30.0); Chloride 106 mmol/L (98-107); Creatinine Clearance Estimated 165 mL/min (50-200); Creatinine,Serum 0.80 mg/dl (0.66-1.25); Estimated Glomerular Filt Rate 105 ml/min (>60); GFR (African American) 126 ML/MIN (>60); Globulin 2.5 g/dL (1.3-3.2); Glucose 97 mg/dl (74-100); Potassium 4.6 mmoL/L (3.5-5.1); Sodium 137 mmol/L (136-145); Total Protein,Serum 6.4 g/dl (6.3-8.2)
--- NOTE | 2025-03-29 10:42 | PC.NURSE ---
Called [facility] for possible patient transfer
[2025-03-29 10:46] LABS: C-Reactive Protein 1.5 mg/L (0-4)
[2025-03-29] MEDS: VANCOMYCIN/WATER FOR INJ (PEG) 1.75 GM/350 ML PIGGYBACK IV (11:22)
--- NOTE | 2025-03-29 11:24 | PC.NURSE ---
Faxed facesheet to [facility]
--- NOTE | 2025-03-29 11:36 | PC.NURSE ---
report called to Melani at [facility]
[2025-03-29] MEDS: OXYCODONE 5MG IMMEDIATE RELEASE TABLET 5 MG PO (11:39)
[2025-03-29] MEDS: METHOCARBAMOL 500MG TABLET 1000 MG PO (11:39)
[2025-03-29 13:26] VITALS: BP 124/76; PULSE 61; RESP 16; TEMP 36.7; O2SAT 99
== END 2025-03-29 13:27 | disposition short-term general hospital (02) ==
PROVIDERS: Emergency Provider Emergency Medicine; PCP Nurse Practitioner
DX: N61.1 Abscess of the breast and nipple (principal); F17.210 Nicotine dependence, cigarettes, uncomplicated
CPT/HCPCS: 80053; 85025; 86140; 87040; 96365; 96366; 96375; 99285; J0131; J1885; J2270; J2405; J3375